=== PATIENT | female | born 1965 | race African-American/Black ===

== ENCOUNTER 2018-12-22 17:44 | Emergency (ER) | payer MEDICAID ==
[~2018-12-22] VITALS: Ht 167.6 cm; Wt 75.0 kg
[~2018-12-22 17:44] MED LIST: BENZ2AMP3 IJ; FLUP10TA2 PO
[2018-12-22 20:07] LABS: CLARITY URINE CLEAR (CLEAR); COLOR URINE YELLOW (YELLOW); KETONES URINE NEGATIVE (NEGATIVE); LEUKOCYTE ESTERASE URINE NEGATIVE (NEGATIVE); NITRITE URINE NEGATIVE (NEGATIVE); OCCULT BLOOD URINE NEGATIVE (NEGATIVE); PH URINE 5.5 (4.5-8.0); PROTEIN URINE NEGATIVE (NEGATIVE); SPECIFIC GRAVITY URINE 1.024 (1.005-1.030); UROBILINOGEN URINE 0.2 E.U./dL (0.2-1.0)
[2018-12-22 21:04] VITALS: BP 127/81
== END 2018-12-22 21:12 | disposition home or self-care (01) ==
LOC: ER 17:44
DX: G89.29 Other chronic pain (principal); M54.5 Low back pain; B37.3 Candidiasis of vulva and vagina; E11.9 Type 2 diabetes mellitus without complications; F17.210 Nicotine dependence, cigarettes, uncomplicated
CPT/HCPCS: 99283